=== PATIENT | female | born 1965 | race Caucasian/White ===

== ENCOUNTER → 2023-11-11 08:50 | Outpatient (AMB) | payer OTHER, SELFPAY ==
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
== END ==
LOC: HO.HOP 08:50
PROVIDERS: Visit Provider Counselor Mental Health
DX: F43.10 Post-traumatic stress disorder, unspecified (principal)
CPT/HCPCS: 90837

== ENCOUNTER → 2023-11-11 08:50 | Outpatient (BNVA) | payer OTHER, SELFPAY | PROVIDERS: Visit Provider Counselor Mental Health ==

== ENCOUNTER → 2023-11-18 12:18 | Outpatient (BNVA) | payer OTHER, SELFPAY | PROVIDERS: Visit Provider Counselor Mental Health ==

== ENCOUNTER → 2023-11-18 12:18 | Outpatient (AMB) | payer OTHER, SELFPAY ==
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
== END ==
LOC: HO.HOP 12:18
PROVIDERS: Visit Provider Counselor Mental Health
DX: F43.10 Post-traumatic stress disorder, unspecified (principal)
CPT/HCPCS: 90837

== ENCOUNTER → 2023-11-25 08:25 | Outpatient (BNVA) | payer OTHER, SELFPAY | PROVIDERS: Visit Provider Counselor Mental Health ==

== ENCOUNTER → 2023-11-25 08:25 | Outpatient (AMB) | payer OTHER, SELFPAY ==
--- NOTE | 2023-11-25 08:26 | MHC.WMTHER ---
Intake Intake Visit Reasons: VIDEO OP Therapy Behavioral Health Assessment Weight Management Therapy Therapy Notes Details Objective/Interventions: PT presents for a follow up visit via telehealth. Today we processed overall functioning, progress and ongoing needs. Reflected listening implemented and constructive feeback provided. CBT and TF-CBT tecniques used to cope with deregulation from Hx of trauma. Behavioral activation targeting morning productivity recommended. Reinforced the ongoing small behavioral changes and it's impact in overall routine and functioning. Subjective: PT reports she has been more reflected and grounded so she can identify what's going on and take a break to be present and get things done. States she is doing better but the past 2 days not sleeping well due to worries around pending projects for school. Asked for feedback around changes aarounf routine and time management. Assessment/Response: PT presents alert, oriented and mildly anxious but not dysregulated. Denies feeling depressed, describes feeling more aware of things . functioning is good, with minimal issues related to high stress. She was open and active in session. Very engaged and responded well to interventions and suggestions. Assessment & Plan Assessment & Plan (1) Post traumatic stress disorder (PTSD): Code(s): F43.10 - Post-traumatic stress disorder, unspecified Plan Continue meeting on a weekly basis. Homework: start structuring mornings to add time for school work, before work day starts. and try different approaches as we discussed. Next fatimah: 12/02/23 at 8am, via telehealth. Telehealth [facility]health [facility] Location of provider rendering services: other Location of patient: address on file Patient Identification confirmed using: Name, : Yes Telehealth method: video Patient verbally consented to treatment: Yes Patient verbally consented to billing insurance company: Yes Patient informed of any privacy concerns related to visit: No Minutes spent on Phone/Video with Pt.: 55 (Start time: 8:05 - End time: 9:00am) Coding Level of Care Code Established Pt Tele Psytx >53 mins ([id number]) Patient Type Established Diagnoses Post traumatic stress disorder (PTSD) F43.10 Time Spent (min) 55 Comment Start time: 8:05 - End time: 9:00am
== END ==
LOC: HO.HOP 08:25
PROVIDERS: Visit Provider Counselor Mental Health
DX: F43.10 Post-traumatic stress disorder, unspecified (principal)
CPT/HCPCS: 90837

== ENCOUNTER 2023-12-16 08:11 | Outpatient (AMB) | payer OTHER, SELFPAY ==
--- NOTE | 2023-12-16 08:00 | A.OFFWM_ITS ---
Intake Intake Visit Reasons: VIDEO OP Therapy Behavioral Health Assessment Weight Management Therapy Therapy Notes Details Subjective: PT reports she feels able to recognize what is real stress from the previous life daily stress/caos. Early Stress Sx: Nauseous Objective: PT presents for a follow up visit via Telehealth. Discussed functioning, triggers and progress. Used CPT for Sx management. Reflective listening with feedback used to reinforcement progress. Assessment/Response: * Mental status: WNL * Risk reported/identified: None Open, active engaged. Responded well to interventions. Assessment & Plan Assessment & Plan (1) Post traumatic stress disorder (PTSD): Code(s): F43.10 - Post-traumatic stress disorder, unspecified Plan Continue meeting on a weekly basis. Telehealth Telehealth Telehealth [facility] Location of provider rendering services: other Location of patient: address on file Patient Identification confirmed using: Name, : Yes Telehealth method: video Patient verbally consented to treatment: Yes Patient verbally consented to billing insurance company: Yes Patient informed of any privacy concerns related to visit: No Minutes spent on Phone/Video with Pt.: 60 Coding Level of Care Code Established Pt Tele Psytx >53 mins ([id number]) Patient Type Established Diagnoses Post traumatic stress disorder (PTSD) F43.10 Time Spent (min) 60
== END 2023-12-16 09:00 | disposition home or self-care (01) ==
LOC: HO.HOP 08:11
PROVIDERS: Visit Provider Counselor Mental Health
DX: F43.10 Post-traumatic stress disorder, unspecified (principal)
CPT/HCPCS: 90837

== ENCOUNTER → 2023-12-16 08:11 | Outpatient (BNVA) | payer OTHER, SELFPAY | PROVIDERS: Visit Provider Counselor Mental Health ==

== ENCOUNTER → 2023-12-30 08:09 | Outpatient (BNVA) | payer OTHER, SELFPAY | PROVIDERS: Visit Provider Counselor Mental Health ==

== ENCOUNTER → 2023-12-30 08:09 | Outpatient (AMB) | payer OTHER, SELFPAY ==
--- NOTE | 2023-12-30 08:00 | A.OFFWM_ITS ---
Intake Intake Visit Reasons: VIDEO OP Therapy Behavioral Health Assessment Weight Management Therapy Therapy Notes Details Subjective: PT reports she's doing well. Still have struggles with transitioning from work to home. It's been 8 months since his child , and feelings are not as overwhelming and she can sit with her emotions . Aware of that skipping meals is a Sx that triggers other anxiety response. She reports been working on small goals and is trying to prioritize psecific things as her days are never the same due to her job. Objective: PT presents for a follow up visit via Telehealth. She canceled last visit scheduled for 12/23/23. Cognitive processing therapy implemented for trauma. Assessment/Response: * Mental status: WNL * Risk reported/identified: None Active and engaged. PT is very aware of Sx and progress made, she still shows active trauma-related Sx which is normal due to nature of events. She continues responding well to this modality. Assessment & Plan Assessment & Plan (1) Post traumatic stress disorder (PTSD): Code(s): F43.10 - Post-traumatic stress disorder, unspecified Plan Continue meeting on a weekly basis. Advised to prioritize evening time, bedtime routine/habits for better sleep hygiene Telehealth Telehealth Telehealth Platform: [employer] Location of provider rendering services: other Location of patient: address on file Patient Identification confirmed using: Name, : Yes Telehealth method: video Patient verbally consented to treatment: Yes Patient verbally consented to billing insurance company: Yes Patient informed of any privacy concerns related to visit: No Minutes spent on Phone/Video with Pt.: 60 Coding Level of Care Code Established Pt Tele Psytx >53 mins ([id number]) Patient Type Established Diagnoses Post traumatic stress disorder (PTSD) F43.10 Time Spent (min) 60 Comment Start time: 8:00 - End time: 9:00am
== END ==
LOC: HO.HOP 08:09
PROVIDERS: Visit Provider Counselor Mental Health
DX: F43.10 Post-traumatic stress disorder, unspecified (principal)
CPT/HCPCS: 90837

== ENCOUNTER → 2024-01-06 08:08 | Outpatient (AMB) | payer OTHER, SELFPAY ==
--- NOTE | 2024-01-06 08:03 | MHC.WMTHER ---
Intake Intake Visit Reasons: VIDEO OP Therapy Behavioral Health Assessment Weight Management Therapy Therapy Notes Details Subjective: PT reports she has been doing better. Noticed some triggering events this week. Sleeping and functioning well in general. Objective: PT presents for a follow up visit via Telehealth. 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 Assessment/Response: Mental status: WNL. Risk reported/identified: None Pt was active and engaged. Responded well to interventions and modality. Plan: continue weekly sessions. Coping plan for after session, transition by doing part 1 of journal followed by mindfulness excercise. Then review her day and plan to fit 1-2 additional mindfulness activities for the day Assessment & Plan Assessment & Plan (1) Post traumatic stress disorder (PTSD): Code(s): F43.10 - Post-traumatic stress disorder, unspecified Plan Continue meeting on a weekly basis. Telehealth Telehealth Telehealth Platform: [facility] Location of provider rendering services: other Location of patient: address on file Patient Identification confirmed using: Name, : Yes Telehealth method: video Patient verbally consented to treatment: Yes Patient verbally consented to billing insurance company: Yes Patient informed of any privacy concerns related to visit: No Minutes spent on Phone/Video with Pt.: 60 Coding Level of Care Code Established Pt Tele Psytx >53 mins ([id number]) Patient Type Established Diagnoses Post traumatic stress disorder (PTSD) F43.10 Time Spent (min) 60
== END ==
LOC: HO.HOP 08:08
PROVIDERS: Visit Provider Counselor Mental Health
DX: F43.10 Post-traumatic stress disorder, unspecified (principal)
CPT/HCPCS: 90837

== ENCOUNTER → 2024-01-06 08:08 | Outpatient (BNVA) | payer OTHER, SELFPAY | PROVIDERS: Visit Provider Counselor Mental Health ==

== ENCOUNTER 2024-01-20 08:09 | Outpatient (AMB) | payer OTHER, SELFPAY ==
--- NOTE | 2024-01-20 08:05 | A.OFFWM_ITS ---
Intake Intake Visit Reasons: VIDEO OP Therapy Behavioral Health Assessment Weight Management Therapy Therapy Notes Details Subjective: Patient presents with mixed feelings surrounding social situations, expressing some discomfort or uncertainty in navigating these interactions. The patient mentions an ongoing effort to understand and address these feelings, seeking strategies to better manage social anxiety. Objective: The patient presents for a follow-up visit via Telehealth. Engaged and communicative throughout the session. Supportive listening was utilized to validate the patient's feelings and concerns. Functional analysis was conducted to explore potential triggers, responses, and maintenance factors related to social anxiety. The patient reflected on current coping methods and worked on reframing some mental responses to improve social interactions. Discussed alternative coping strategies to challenge unhelpful thought patterns and improve emotional regulation. Assessment/Response: * Mental status: Mild anxiety. The patient is alert, open, and active throughout the session. * Risk: No immediate risk identified; patient?s risk factors remain within normal limits. The patient appears motivated and engaged in understanding the underlying causes of her social anxiety. She reports that she has begun reading a recommended book, which has been helpful in understanding past behavioral patterns and cycles, particularly those related to her childhood. The patient responded positively to interventions, showing increased insight and willingness to try new coping strategies. Assessment & Plan Assessment & Plan (1) Post traumatic stress disorder (PTSD): Code(s): F43.10 - Post-traumatic stress disorder, unspecified (2) Moderate depressive episode: Code(s): F32.A - Depression, unspecified Plan -Continue using supportive listening and functional analysis to explore triggers and responses in social situations. -Focus on reinforcing new coping mechanisms and reframing unhelpful mental patterns. -Encourage continued reading of the book to deepen understanding and insight into past behavior patterns. Next appointment: 01/26/2025 at 8am, telehealth Telehealth Telehealth [facility]health [facility] Location of provider rendering services: other Location of patient: address on file Patient Identification confirmed using: Name, : Yes Telehealth method: video Patient verbally consented to treatment: Yes Patient verbally consented to billing insurance company: Yes Patient informed of any privacy concerns related to visit: Yes Minutes spent on Phone/Video with Pt.: 55 Coding Level of Care Code Established Pt Tele Psytx >53 mins ([id number]) Patient Type Established Diagnoses Post traumatic stress disorder (PTSD) F43.10 Moderate depressive episode F32.A Time Spent (min) 55
== END 2024-01-20 16:00 | disposition home or self-care (01) ==
LOC: HO.HOP 08:09
PROVIDERS: Visit Provider Counselor Mental Health
DX: F43.10 Post-traumatic stress disorder, unspecified (principal); F32.A Depression, unspecified
CPT/HCPCS: 90837

== ENCOUNTER → 2024-01-20 08:09 | Outpatient (BNVA) | payer OTHER, SELFPAY | PROVIDERS: Visit Provider Counselor Mental Health ==

== ENCOUNTER → 2024-01-27 08:09 | Outpatient (AMB) | payer OTHER, SELFPAY ==
--- NOTE | 2024-01-27 08:05 | A.OFFWM_ITS ---
Intake Intake Visit Reasons: VIDEO OP Therapy Behavioral Health Assessment Weight Management Therapy Therapy Notes Details Subjective: PT reports she's coming over a blip , a down avoiding things. Objective: Pt presents for a counseling f/up visit via Telehealth. Reflective listening, discussed functioning and processed overall mood, triggers and responses. Reflected on patterns and changes she has made, while worked in Sx management and cognitive restructuration. Used CBT and CPT interventions. Assessment/Response: * Mental status: WNL. Good functioning. * Risk reported/identified: None. PT was reflective and responded well to interventions. -Aware of her dysregulation responses an d causes/reasons for the blip (eusually a deadline and she has a block for it). She has been reframing the self-talk and is learning that Working harder has been her compensatory behavior for fears (core beliefs.) Assessment & Plan Assessment & Plan (1) Post traumatic stress disorder (PTSD): Code(s): F43.10 - Post-traumatic stress disorder, unspecified Plan Continue meeting on a weekly basis. Coding Level of Care Code Established Pt Tele Psytx >53 mins ([id number]) Patient Type Established Diagnoses Post traumatic stress disorder (PTSD) F43.10 Time Spent (min) 55
== END ==
LOC: HO.HOP 08:09
PROVIDERS: Visit Provider Counselor Mental Health
DX: F43.10 Post-traumatic stress disorder, unspecified (principal)
CPT/HCPCS: 90837

== ENCOUNTER → 2024-01-27 08:09 | Outpatient (BNVA) | payer OTHER, SELFPAY | PROVIDERS: Visit Provider Counselor Mental Health ==

== ENCOUNTER → 2024-02-24 08:00 | Outpatient (AMB) | payer OTHER, SELFPAY ==
--- NOTE | 2024-02-24 08:00 | A.OFFWM_ITS ---
Intake Intake Visit Reasons: VIDEO OP Therapy Behavioral Health Assessment Weight Management Therapy Therapy Notes Details Subjective: Patient reports having a very difficult time over the past three weeks, with a triggering event involving her son, which led to a depressive episode. Describes getting through the days but expresses significant distress. Ongoing Symptoms besides depressed state include nausea, memory issues, difficulty completing work, feelings of sadness, and struggles with morning functioning. Positive aspects include sleeping well and not procrastinating on schoolwork. Objective: Patient presents for a follow-up visit via Telehealth. Patient canceled last week's appointment due to emotional distress. Utilized Cognitive Behavioral Therapy (CBT) and Cognitive Processing Therapy (CPT) combined with a person-centered approach to validate and normalize the patient?s emotions. Focused on identifying triggers, responses, and developing a relapse prevention plan. Explored the patient?s deepest fears and mental responses to current challenges. Discussed ongoing grief, and strategized for coping with the upcoming holidays, aiming to balance honoring her feelings while enjoying family and blessings. Provided constructive feedback and emotional support throughout the session. Assessment/Response: * Mental status: Moderate depression with functioning difficulties. The patient is oriented to person, place, and time, and remains alert. * Risk: No immediate risk identified; risk factors remain within normal limits. Patient responded positively to the interventions, demonstrating engagement in the process and openness to exploring underlying issues. Plan: due to Sx we will follow up in 1 week. Next fatimah: 03/02 @8am, Telehealth. Assessment & Plan Assessment & Plan (1) Post traumatic stress disorder (PTSD): Code(s): F43.10 - Post-traumatic stress disorder, unspecified (2) Moderate depressive episode: Code(s): F32.A - Depression, unspecified Plan * Due to the ongoing symptoms, follow-up is scheduled in one week to monitor progress and continue treatment. * Focus on developing further coping strategies for managing grief and holiday stress. * Next appointment: 03/02 at 8:00 AM via Telehealth. [employer] Telehealth Telehealth Platform: [facility] Location of provider rendering services: other Location of patient: address on file Patient Identification confirmed using: Name, : Yes Telehealth method: video Patient verbally consented to treatment: Yes Patient verbally consented to billing insurance company: Yes Patient informed of any privacy concerns related to visit: Yes Minutes spent on Phone/Video with Pt.: 60 Coding Level of Care Code Established Pt Tele Psytx >53 mins ([id number]) Patient Type Established Diagnoses Post traumatic stress disorder (PTSD) F43.10 Moderate depressive episode F32.A Time Spent (min) 60
== END ==
LOC: HO.HOP 08:18
PROVIDERS: Visit Provider Counselor Mental Health
DX: F43.10 Post-traumatic stress disorder, unspecified (principal); F32.A Depression, unspecified
CPT/HCPCS: 90837

== ENCOUNTER 2024-03-02 08:12 | Outpatient (AMB) | payer OTHER, SELFPAY ==
--- NOTE | 2024-03-02 08:05 | A.OFFWM_ITS ---
Intake Intake Visit Reasons: VIDEO OP Therapy Behavioral Health Assessment Weight Management Therapy Therapy Notes Details Subjective: PT reports feeling better in general but there is a tense environment due to recent issues with her son who loves with her. Feeling triggered by her son's behaviors as reminds her past negative experiences with child (Alonso). So she feels little bit stuck . Hard to know what to do around the holidays while going trough a complicated grief. Objective: PT presents for a f/up visit via Telehealth. Implemented CPT therapy for trauma and grief. Explored Spiritual practices for grief and manage Holidays. Reflective listening used and constructive feedback for Sx management provided. Assessment/Response: * Mental status: Sad, anxious, mild-mod functioning issues. * Risk reported/identified: None PT was open and reflective, she responded well to interventions. Assessment & Plan Assessment & Plan (1) Post traumatic stress disorder (PTSD): Code(s): F43.10 - Post-traumatic stress disorder, unspecified (2) Moderate depressive episode: Code(s): F32.A - Depression, unspecified Plan F//up in 2 weeks as she's unavailable next week. NExt fatimah: 03/16/24 at 8am, Telehealth. Telehealth Telehealth Telehealth Platform: [facility] Location of provider rendering services: other Location of patient: address on file Patient Identification confirmed using: Name, : Yes Telehealth method: video Patient verbally consented to treatment: Yes Patient verbally consented to billing insurance company: Yes Patient informed of any privacy concerns related to visit: Yes Minutes spent on Phone/Video with Pt.: 60 Coding Level of Care Code Established Pt Tele Psytx >53 mins ([id number]) Patient Type Established Diagnoses Post traumatic stress disorder (PTSD) F43.10 Moderate depressive episode F32.A Time Spent (min) 60
== END 2024-03-02 11:30 | disposition home or self-care (01) ==
LOC: HO.HOP 08:12
PROVIDERS: Visit Provider Counselor Mental Health
DX: F43.10 Post-traumatic stress disorder, unspecified (principal); F32.A Depression, unspecified
CPT/HCPCS: 90837

== ENCOUNTER 2024-03-30 08:14 | Outpatient (AMB) | payer OTHER, SELFPAY ==
--- NOTE | 2024-03-30 08:00 | A.OFFWM_ITS ---
Intake Intake Visit Reasons: VIDEO OP Therapy Behavioral Health Assessment Weight Management Therapy Therapy Notes Details Subjective: The patient presents for a Telehealth visit. She reports experiencing high stress due to a recent work-related event, which has now added concerns for her own safety. Despite this, she notes that she is managing things better personally this time around. The patient mentions that the holidays were more challenging than anticipated, but she was able to manage strong emotions and be present with her family. Objective: F/up visit via Telehealth. . Discussed current stressors, including work-related concerns and safety issues. Processed the emotional impact of the holidays and how the patient managed her feelings. Incorporated Cognitive Behavioral Therapy (CBT) to explore and reframe negative thought patterns related to stress and safety concerns. Used Cognitive Processing Therapy (CPT) techniques to help the patient challenge and address maladaptive beliefs related to her personal safety and work environment. Applied mindfulness exercises to help the patient remain grounded in the present moment and reduce overwhelming feelings. Assessment/Response: * Mental Status: Elevated stress, but improved personal coping. Mild emotional strain during the holidays. * Risk: No immediate risks identified. The patient appeared engaged and actively participating in the session. She is actively working through her stressors and demonstrating positive coping strategies. She responded well to the CBT and CPT interventions, and mindfulness techniques helped her stay more grounded. Assessment & Plan Assessment & Plan (1) Post traumatic stress disorder (PTSD): Code(s): F43.10 - Post-traumatic stress disorder, unspecified (2) Moderate depressive episode: Code(s): F32.A - Depression, unspecified Plan * Reinforce mindfulness practices to help manage stress in the present moment. * Monitor progress in managing stress and emotional regulation and adjust interventions as needed. F/up in 2 weeks. Next fatimah: 04/13/2024 at 8am, via Telehealth. Telehealth Telehealth Telehealth Platform: [facility] Location of provider rendering services: other Location of patient: address on file Patient Identification confirmed using: Name, : Yes Telehealth method: video Patient verbally consented to treatment: Yes Patient verbally consented to billing insurance company: Yes Patient informed of any privacy concerns related to visit: Yes Minutes spent on Phone/Video with Pt.: 60 Coding Level of Care Code Established Pt Tele Psytx >53 mins ([id number]) Patient Type Established Diagnoses Post traumatic stress disorder (PTSD) F43.10 Moderate depressive episode F32.A Time Spent (min) 60
== END 2024-03-30 11:13 | disposition home or self-care (01) ==
LOC: HO.HOP 08:14
PROVIDERS: Visit Provider Counselor Mental Health
DX: F43.10 Post-traumatic stress disorder, unspecified (principal); F32.A Depression, unspecified
CPT/HCPCS: 90837

== ENCOUNTER 2024-04-13 08:08 | Outpatient (AMB) | payer OTHER, SELFPAY ==
--- NOTE | 2024-04-13 08:00 | A.OFFWM_ITS ---
Intake Intake Visit Reasons: VIDEO OP Therapy Behavioral Health Assessment Weight Management Therapy Therapy Notes Details Subjective: The patient reports feeling better today and is relieved that the holidays are over. She shares that she has been managing well with the socio-political situation, understanding her position and the need to stay informed. 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 These drives bring up a variety of memories, which have been difficult for her to process. Objective: The patient presents for a follow-up visit via Telehealth. * Discussed the patient's current functioning and the triggers related to driving the old route. * Processed the emotional impact of these triggers and explored the associated memories. * Developed a coping plan, focusing on grounding techniques to manage intrusive thoughts and memories. * Reviewed self-care strategies, including mindfulness exercises and relaxation techniques, to help manage stress when these triggers arise. Assessment/Response: * Mental Status: The patient appears stable with some emotional distress when triggered by memories related to driving. She is otherwise functioning well and managing her emotional reactions more effectively. * Risk: No immediate risks identified. The patient was engaged in the session and actively participated in processing the triggers. The coping strategies discussed seemed appropriate, and the patient responded well to the interventions. Assessment & Plan Assessment & Plan (1) Post traumatic stress disorder (PTSD): Code(s): F43.10 - Post-traumatic stress disorder, unspecified (2) Moderate depressive episode: Code(s): F32.A - Depression, unspecified Plan Continue using mindfulness and grounding techniques to manage triggers related to past memories. Encourage regular use of self-care strategies, such as relaxation exercises, to reduce emotional distress. F/up in 2 weeks. Telehealth Telehealth Telehealth [facility] Location of provider rendering services: other Location of patient: address on file Patient Identification confirmed using: Name, : Yes Telehealth method: video Patient verbally consented to treatment: Yes Patient verbally consented to billing insurance company: Yes Patient informed of any privacy concerns related to visit: Yes Minutes spent on Phone/Video with Pt.: 60 Coding Level of Care Code Established Pt Tele Psytx >53 mins ([id number]) Patient Type Established Diagnoses Post traumatic stress disorder (PTSD) F43.10 Moderate depressive episode F32.A Time Spent (min) 60
--- OUTSIDE RECORDS SUMMARY | 2024-04-13 10:59 | XMS_ITS | Clinical Summary ---
Author Organization [facility] Address [address] [place] [address] Care Team Providers Care Fashion Consultant Selling Name Role Phone Pcp, No Primary Care Provider Unavailabl e Allergies No known active allergies Medications No known medications Active Problems Problem Noted Date Diagnosed Date Abnormal ultrasound of breast 10/06/2016 Inconclusive mammogram 10/06/2016 Family History Medical History Relation Name Comments Lung cancer Paternal Grandfather Relation Name Status Comments Paternal Grandfather Social History Tobacco Use Types Packs/Day Years Used Date Smoking Tobacco: Never Smokeless Tobacco: Never Alcohol Use Standard Drinks/Week Comments Yes 0 (1 standard drink = 0.6 oz pur e alcohol) Sex and Gender Information Value Date Recorded Sex Assigned at Not on file Gender Identity Not on file Sexual Orientation Not on file Last Filed Vital Signs Vital Sign Reading Time Taken Comments Blood Pressure 112/70 04/27/2017 9:48 AM EST Pulse 61 04/27/2017 9:48 AM EST Temperature - - Respiratory Rate - - Oxygen Saturation 98% 04/27/2017 9:48 AM EST Inhaled Oxygen Concentration - - Weight 70.3 kg (155 lb) 04/27/2017 9:48 AM EST Height 167.6 cm (5' 6 ) 04/27/2017 9:48 AM EST Body Mass Index 25.02 04/27/2017 9:48 AM EST Plan of Treatment Health Maintenance Due Date Last Done Comments Hepatitis C Virus Screening 1966 HIV Screening 11/01/1979 DTaP/Tdap/Td Vaccines (1 - Tdap) 1985 Hepatitis B Vaccines (1 of 3 - 19+ 3-dose series) 1985 Pap Smear (Ages 21-65) 11/01/1987 Colonoscopy 11/01/2011 Pneumococcal Vaccines 50+ (1 of 1 - PCV) 2016 Zoster (Shingles) Vaccine (1 of 2) 2016 Mammogram 11/24/2019 11/23/2017, 08/19/2016, 08/19/2016 Influenza Vaccine 10/14/2023 COVID-19 Vaccine (1 - 2023-2 5 season) 2023 Pneumococcal Vaccine: Pediatric (0-5 Years) and At-Risk Patients (6 to 49 Years) Aged Out No longer eligible b ased on patient's age to complete this topic Procedures Procedure Name Priority Date/Time Associated Diagnosis Comments MM MAMMOGRAM SCREENING-BILATERAL Routine 11/23/2017 4:47 PM EDT from Last 3 Months or Most Recently Relevant to Health Maintenance Results * MM Mammogram screening-Bilateral (11/23/2017 4:47 PM EDT) Anatomical Region Laterality Modality Breast Bilateral Mammography 11/23/2017 1:45 PM EDT 11/23/2017 1:45 PM EDT Impressions 11/23/2017 4:47 PM EDT Biopsy clip in the left breast is benign. Routine follow-up mammogram in 1 year is recommended. The patient will receive a lay summary of the results of this breast imaging exam. Lay summaries for mammography examinations will also identify the patients personal breast tissue composition as required by state law. BIRADS Category 2: Benign Thank you for referring your patient to us, Krzysztof Alves MD [phone] (Electronically Signed - 11/23/2017 16:47) Copy: SHANI NUNEZ MD [address] [place] [address] [facility] [address] [facility] [address] [place], [place] [address] PATIENT , ?? Narrative 11/23/2017 4:47 PM EDT HISTORY: Patient is 52 years old and is seen for screening. The patient has a history of left ultrasound core biopsy in September,. FILMS COMPARED: The present examination has been compared to prior imaging studies dated 10/12/2016, 08/19/2016 and 07/01/2015. MAMMOGRAM FINDINGS: The following digital mammographic views were obtained: . The breasts are heterogeneously dense, which may obscure small masses. (ACR BIRADS density Category c) * There is a biopsy clip seen in the left breast at 12 oclock. No suspicious masses, calcifications or other abnormalities are seen in either breast. Computer-aided detection was utilized by the radiologist in the interpretation of this examination. Procedure Note Krzysztof Alves MD - 11/23/2017 HISTORY: Patient is 52 years old and is seen for screening. The patient has a history of left ultrasound core biopsy in September,. FILMS COMPARED: The present examination has been compared to prior imaging studies dated10/12/2016, 08/19/2016 and 07/01/2015. MAMMOGRAM FINDINGS: The following digital mammographic views were obtained: . The breasts are heterogeneously dense, which may obscure small masses.(ACR BIRADS density Category c) * There is a biopsy clip seen in the left breast at 12 oclock. No suspicious masses, calcifications or other abnormalities are seen ineither breast. Computer-aided detection was utilized by the radiologist in theinterpretation of this examination. IMPRESSION: Biopsy clip in the left breast is benign. Routine follow-up mammogram in 1 year is recommended. The patient will receive a lay summary of the results of this breastimaging exam. Lay summaries for mammography examinations will alsoidentify the patients personal breast tissue composition as required [facility]. BIRADS Category 2: Benign Thank you for referring your patient to us, Krzysztof Alves MD [phone] (Electronically Signed - 11/23/2017 16:47) Copy: SHANI NUNEZ MD [address], [place] [id number] [facility] [address] [facility] [address] [place], [place] [address] PATIENT , Dejah Moura MD IMG MAMMOGRAPHY ORDAlicia CRAVEN from Last 3 Months or Most Recently Relevant to Health Maintenance Care Teams Fashion Consultant Selling Relationship Specialty Start Date End Date Pcp, No PCP - General General Medicine 09/07/16
== END 2024-04-13 09:39 | disposition home or self-care (01) ==
LOC: HO.HOP 08:08
PROVIDERS: Visit Provider Counselor Mental Health
DX: F43.10 Post-traumatic stress disorder, unspecified (principal); F32.A Depression, unspecified
CPT/HCPCS: 90837

== ENCOUNTER → 2024-04-13 08:08 | Outpatient (BNVA) | payer OTHER, SELFPAY | PROVIDERS: Visit Provider Counselor Mental Health ==

== ENCOUNTER 2024-05-25 08:00 | Outpatient (AMB) | payer OTHER, SELFPAY ==
--- NOTE | 2024-05-25 08:00 | A.OFFWM_ITS ---
Intake Intake Visit Reasons: VIDEO OP Therapy Behavioral Health Assessment Weight Management Therapy Therapy Notes Details Subjective: The patient reports having had a challenging March, particularly due to the one- year anniversary of her child?s passing. She describes the situation with her son as still being tense. During this time, she missed work and believes she experienced a depressive episode, which lasted for approximately 2-3 weeks. The patient shared that she has learned she tends not to release her emotions?she does not cry in front of others or share her feelings openly. Objective: The patient presented for a follow-up session via Telehealth. . Emotional Processing & Functioning implemented as The patient expressed difficulty in emotional expression and discussed her unresolved grief. Used TF-CBT based interventions. Challenged guilt and self-blame around grief, encouraging reframing of thoughts about emotional expression and Suggested journaling and small activities to promote emotional expression. Reflected on narrative of grief to process emotions. Practiced grounding techniques to manage overwhelming emotions. Assessment/Response: * Mental Status: The patient appeared well-oriented, with a somewhat flat affect, though she was engaged throughout the session. Her thought process was coherent, and she demonstrated insight into her grief and emotional struggles. * Risk Reported/Identified: No immediate risks were identified during the session. The patient denied current thoughts of self-harm or suicidal ideation. However, her grief remains unresolved, and continued monitoring is necessary. Assessment & Plan Assessment & Plan (1) Post traumatic stress disorder (PTSD): Code(s): F43.10 - Post-traumatic stress disorder, unspecified (2) Moderate depressive episode: Code(s): F32.A - Depression, unspecified Plan Continue bi-weekly therapy sessions, focusing on grief processing and emotional expression. Next appointment: 06/08/24 at 8:00 AM, via Telehealth. Telehealth Telehealth Telehealth Platform: [facility] Location of provider rendering services: other Location of patient: address on file Patient Identification confirmed using: Name, : Yes Telehealth method: video Patient verbally consented to treatment: Yes Patient verbally consented to billing insurance company: Yes Patient informed of any privacy concerns related to visit: Yes Minutes spent on Phone/Video with Pt.: 60 Coding Level of Care Code Established Pt Tele Psytx >53 mins ([id number]) Patient Type Established Diagnoses Post traumatic stress disorder (PTSD) F43.10 Moderate depressive episode F32.A Time Spent (min) 60
--- OUTSIDE RECORDS SUMMARY | 2024-05-25 08:42 | XMS_ITS | Clinical Summary ---
Author Organization [facility] Address [address] [place] [address] Care Team Providers Care Skill Labor Name Role Phone Pcp, No Primary Care [...] your patient to us, Krzysztof Alves MD [phone] (Electronically Signed - 11/23/2017 16:47) Copy: SHANI NUNEZ MD [address] [place] [address] [facility] [address] [facility] [address] [place], [place] [address] PATIENT , ?? Narrative 11/23/2017 4:47 PM [...] patients personal breast tissue composition as required [facility] law. BIRADS Category 2: Benign Thank you for referring your patient to us, Krzysztof Alves MD [phone] (Electronically Signed - 11/23/2017 16:47) Copy: SHANI NUNEZ MD [address] [place], [place] [id number] [facility] [address] [facility] [address] [place], [place] [address] PATIENT , Dejah Moura MD IMG MAMMOGRAPHY ORDAlicia CRAVEN from Last 3 Months or Most Recently Relevant to Health Maintenance Care Teams Skill Labor Relationship Specialty Start Date End Date Pcp, No PCP - General General Medicine 09/07/16
== END 2024-05-25 09:58 | disposition home or self-care (01) ==
LOC: HO.HOP 08:19
PROVIDERS: Visit Provider Counselor Mental Health
DX: F43.10 Post-traumatic stress disorder, unspecified (principal); F32.A Depression, unspecified
CPT/HCPCS: 90837

== ENCOUNTER 2024-06-08 08:13 | Outpatient (AMB) | payer OTHER, SELFPAY ==
--- NOTE | 2024-06-08 08:00 | MHC.WMTHER ---
Intake Intake Visit Reasons: VIDEO OP Therapy Behavioral Health Assessment Weight Management Therapy Therapy Notes Details Subjective: The patient reports feeling better overall and managing symptoms more effectively. She feels more present in her daily life. However, she continues to experience deep emotional struggles, feeling that there is something she cannot let go of. She has difficulty feeling randy, as exemplified by her recent experience at her oldest daughter?s baby shower, where she couldn?t fully enjoy the celebration. Objective: The patient presented for a follow-up visit via Telehealth. . Implemented TF-CBT and CPT in today's session. Reviewed the cycle of grief and explored multiple losses, addressing the core beliefs underlying her grief, such as difficulty letting go and the belief that feeling randy equates to forgetting her children. Worked on identifying and challenging negative self-talk, including thoughts like ?Why me?? and ?What kind of mother am I?? Focused on improving self-worth and self-compassion. Reflected on the depressive episode from April and began processing the emotions triggered during that time. Started creating a trauma narrative, specifically through the activity of writing a letter to her future self, addressing feelings related to the April episode. Assessment/Response: Mental status: Sensitive and sad. Some mild concentration issues but functioning well. Risk reported/identified: None Assessment & Plan Assessment & Plan (1) Post traumatic stress disorder (PTSD): Code(s): F43.10 - Post-traumatic stress disorder, unspecified (2) Moderate depressive episode: Code(s): F32.A - Depression, unspecified Plan - Continue to process grief and challenge negative thought patterns in upcoming sessions. - Support the patient in developing healthier self-worth and emotional regulation strategies. - F/up in 2 weeks. Next fatimah: 06/22/24 at 8am, Video. Telehealth Telehealth Telehealth Platform: [facility] Location of provider rendering services: other Location of patient: address on file Patient Identification confirmed using: Name, : Yes Telehealth method: video Patient verbally consented to treatment: Yes Patient verbally consented to billing insurance company: Yes Patient informed of any privacy concerns related to visit: Yes Minutes spent on Phone/Video with Pt.: 60 Coding Level of Care Code Established Pt Tele Psytx >53 mins ([id number]) Patient Type Established Diagnoses Post traumatic stress disorder (PTSD) F43.10 Moderate depressive episode F32.A Time Spent (min) 60
== END 2024-06-08 08:59 | disposition home or self-care (01) ==
LOC: HO.HOP 08:13
PROVIDERS: Visit Provider Counselor Mental Health
DX: F43.10 Post-traumatic stress disorder, unspecified (principal); F32.A Depression, unspecified
CPT/HCPCS: 90837

== ENCOUNTER 2024-06-22 08:19 | Outpatient (AMB) | payer OTHER, SELFPAY ==
--- NOTE | 2024-06-22 08:05 | MHC.WMTHER ---
Intake Intake Visit Reasons: VIDEO OP Therapy Behavioral Health Assessment Weight Management Therapy Therapy Notes Details Subjective: The patient reports experiencing feelings of guilt related to her recent loss and the multiple roles she occupies, including being a mother, leader, and grandmother. She describes feeling sad and engaging in negative self-talk. Objective: The patient attended a follow-up visit via Telehealth. We discussed her current functioning, daily routine, and the challenges she faces. Cognitive Processing Therapy (CPT) and reflective listening techniques were employed to address her feelings of guilt and to reframe her negative self-talk. Mindfulness exercises were reviewed as strategies to alleviate stress and manage heavy emotions. Additionally, we explored childhood experiences that may be contributing to her ongoing challenges, with a focus on symptom management. Assessment/Response: Mental status: The patient appears sad and exhibits mild depressive symptoms, with active negative self-talk. Oriented x3, alert, engaged in session. Risk reported/identified: None Assessment & Plan Assessment & Plan (1) Post traumatic stress disorder (PTSD): Code(s): F43.10 - Post-traumatic stress disorder, unspecified (2) Moderate depressive episode: Code(s): F32.A - Depression, unspecified Plan Continue to address and process grief in upcoming sessions, focusing on challenging and reframing negative thought patterns. Provide support in developing healthier self-worth and emotional regulation strategies. The next follow-up appointment will be in three weeks, as the patient will be unavailable in two weeks. Next appointment: 07/13/2024- 8:00 AM via Telehealth. Telehealth Telehealth Telehealth Platform: [facility] Location of provider rendering services: other Location of patient: address on file Patient Identification confirmed using: Name, : Yes Telehealth method: video Patient verbally consented to treatment: Yes Patient verbally consented to billing insurance company: Yes Patient informed of any privacy concerns related to visit: Yes Minutes spent on Phone/Video with Pt.: 55 Coding Level of Care Code Established Pt Tele Psytx >53 mins (82494) Patient Type Established Diagnoses Post traumatic stress disorder (PTSD) F43.10 Moderate depressive episode F32.A Time Spent (min) 55
--- OUTSIDE RECORDS SUMMARY | 2024-06-22 08:28 | XMS_ITS | Clinical Summary ---
Author Organization [facility] Address [address] [place] [address] Care Team Providers Care Dock Attendant Name Role Phone Pcp, No Primary Care [...] your patient to us, Krzysztof Alves MD [phone] (Electronically Signed - 11/23/2017 16:47) Copy: SHANI NUNEZ MD [address] [place] [address] SOBEIDA ROBISON [facility] [address] [facility] [address] [place], [place] [id number] PATIENT , ?? Narrative 11/23/2017 4:47 PM [...] patients personal breast tissue composition as [facility]. BIRADS Category 2: Benign Thank you for referring your patient to us, Krzysztof Alves MD [phone] (Electronically Signed - 11/23/2017 16:47) Copy: SHANI NUNEZ MD [address] [place], [place] [id number] SOBEIDA ROBISON [facility] 139 [facility] [address] [place], [place] [address] PATIENT , Dejah Moura MD IMG MAMMOGRAPHY ORDAlicia CRAVEN from Last 3 Months or Most Recently Relevant to Health Maintenance Care Teams Dock Attendant Relationship Specialty Start Date End Date Pcp, No PCP - General General Medicine 09/07/16
== END 2024-06-22 09:06 | disposition home or self-care (01) ==
LOC: HO.HOP 08:19
PROVIDERS: Visit Provider Counselor Mental Health
DX: F43.10 Post-traumatic stress disorder, unspecified (principal); F32.A Depression, unspecified
CPT/HCPCS: 90837

== ENCOUNTER → 2024-06-22 08:19 | Outpatient (BNVA) | payer OTHER, SELFPAY | PROVIDERS: Visit Provider Counselor Mental Health ==

== ENCOUNTER 2024-07-21 08:06 | Outpatient (AMB) | payer OTHER, SELFPAY ==
--- NOTE | 2024-07-21 08:07 | A.OFFWM_ITS ---
Intake Intake Visit Reasons: VIDEO OP Therapy Behavioral Health Assessment Weight Management Therapy Therapy Notes Details Subjective: The patient reports that she has been doing well overall but feels very busy. She expresses frustration over not having enough time to consistently practice meditation each night, which she believes would help her sleep better and feel more rested. Objective: Discussed functioning, progress, challenges and nedds. In today?s Telehealth follow-up, we used CBT and CPT as main modalities for Sx amnagement. In addition, the patient was guided to establish a consistent ?quiet time? routine as a transitional strategy to help manage stress and improve sleep and we explored the differences between introversion and extroversion, emphasizing the importance of engaging in activities that recharge her energy. The patient was encouraged to identify and incorporate personally meaningful, restorative activities into her daily schedule to support emotional regulation and overall well-being. Assessment/Response: * Mental status: Good functioning in general . * Risk reported/identified:None. Assessment & Plan Assessment & Plan (1) Post traumatic stress disorder (PTSD): Code(s): F43.10 - Post-traumatic stress disorder, unspecified (2) Moderate depressive episode: Code(s): F32.A - Depression, unspecified Plan Continue therapy on a bi-weekly basis. Next fatimah: 08/04/2024 at 8am, Video Telehealth Telehealth Telehealth Platform: [employer] Location of provider rendering services: other (Home office. [place], [place]) Location of patient: address on file Patient Identification confirmed using: Name, : Yes Patient verbally consented to treatment: Yes Patient verbally consented to billing insurance company: Yes Patient informed of any privacy concerns related to visit: Yes Minutes spent on Phone/Video with Pt.: 53 Coding Level of Care Code Established Pt Tele Psytx >53 mins (10444) Patient Type Established Diagnoses Post traumatic stress disorder (PTSD) F43.10 Moderate depressive episode F32.A Time Spent (min) 53
--- OUTSIDE RECORDS SUMMARY | 2024-07-21 08:08 | XMS_ITS | Clinical Summary ---
Author Organization [facility] Address [address] [place] [address] Care Team Providers Care Answering Service Operator Name Role Phone Pcp, No Primary Care [...] drink = 0.6 oz pur e alcohol) Comments Unknown Sex and Gender Information Value Date Recorded Sex Assigned at Not on file Legal Sex Female 4:39 PM EDT Gender Identity Not on file Sexual Orientation [...] (1 of 2) 2016 Mammogram 11/24/2019 11/23/2017, 09/2016, 08/19/2016 COVID-19 Vaccine (1 - season) 2023 Influenza Vaccine 10/13/2024 Procedures Procedure Name Priority Date/Time Associated Diagnosis [...] your patient to us, Krzysztof Alves MD [id number] (Electronically Signed - 11/23/2017 16:47) Copy: SHANI NUNEZ MD [address] [place] [address] SOBEIDA ROBISON [address] [place] [address] PATIENT , ?? Narrative 11/23/2017 4:47 PM [...] patients personal breast tissue composition as required bystate law. BIRADS Category 2: Benign Thank you for referring your patient to us, Krzysztof Alves MD [phone] (Electronically Signed - 11/23/2017 16:47) Copy: SHANI NUNEZ MD [address] [place], [place] [phone] SOBEIDA ROBISON [facility] 139 [facility] [address] [place], [place] [id number] PATIENT , us Dejah Moura MD IMG MAMMOGRAPHY ORDERABLES Final Result from Last 3 Months or Most Recently Relevant to Health Maintenance Insurance [employer] [place] OUT OF STATE - O Care Teams Answering Service Operator Relationship Specialty Start Date End Date Pcp, No PCP - General General Medicine 09/07/16
== END 2024-07-21 09:24 | disposition home or self-care (01) ==
LOC: HO.HOP 08:06
PROVIDERS: Visit Provider Counselor Mental Health
DX: F43.10 Post-traumatic stress disorder, unspecified (principal); F32.A Depression, unspecified
CPT/HCPCS: 90837

== ENCOUNTER → 2024-07-21 08:06 | Outpatient (BNVA) | payer OTHER, SELFPAY | PROVIDERS: Visit Provider Counselor Mental Health ==

== ENCOUNTER 2024-08-04 08:10 | Outpatient (AMB) | payer OTHER, SELFPAY ==
--- NOTE | 2024-08-04 08:05 | A.OFFWM_ITS ---
Intake Intake Visit Reasons: VIDEO OP Therapy Medication List - Last Reconciled 08/04/24 by Adilene Edmonds [facility] sertraline 100 mg PO DAILY Behavioral Health Assessment Weight Management Therapy Therapy Notes Details Subjective: Patient reports that her daughter recently gave to a baby boy, and she has been actively supporting them this past week. Despite this positive event, she describes feeling emotionally numb and having ?trouble allowing [herself] to feel,? often entering a shutdown state that she associates with the onset of depressive episodes. She expresses uncertainty about how she ?should? feel and notes operating in ?cruise control? or ?auto-aircraft pilot mode.? She reflects on a shift in her emotional expression over time, stating, ?I?m pragmatic now?I was an emotional child before.? Current medication: Zoloft 100 mg daily. Objective: Patient presented for a behavioral health follow-up via Telehealth. -CBT and ACT-based interventions were us ed to help the patient identify, label, and increase tolerance of emotional responses, especially around positive experiences. Emotional numbing was discussed as a protective pattern, and patient was encouraged to accept and explore mixed emotions without judgment. A brief values clarification exercise supported reflection on her shift from emotional to pragmatic coping and helped reconnect her with authentic emotional expression. -Behavioral activation strategies were d iscussed, including a structured chart identifying: (1) tasks she must do, (2) activities she enjoys, and (3) things she wishes to do more. This helped the patient examine her current routine, identify sources of fulfillment, and highlight areas of neglect. -The ?Wheel of Life? activity was also u tilized to assess satisfaction across lugo life domains, supporting greater self-awareness and potential goal development. Emotional transitions and coping skills were discussed in relation to meaningful life changes. Assessment/Response: * Mental status: Mood mildly depressed; insight and engagement present. * Risk reported/identified: None Patient was reflective, engaged, and receptive to therapeutic interventions throughout the session. Assessment & Plan Assessment & Plan (1) Post traumatic stress disorder (PTSD): Code(s): F43.10 - Post-traumatic stress disorder, unspecified (2) Moderate depressive episode: Code(s): F32.A - Depression, unspecified Plan Continue therapy on a bi-weekly basis. Next fatimah: 08/17/2024 at 8am, Video Telehealth Telehealth Telehealth Platform: [employer] Location of provider rendering services: other (Home office. [place], [place]) Location of patient: address on file Patient Identification confirmed using: Name, : Yes Telehealth method: video Patient verbally consented to treatment: Yes Patient verbally consented to billing insurance company: Yes Patient informed of any privacy concerns related to visit: Yes Minutes spent on Phone/Video with Pt.: 60 Coding Level of Care Code Established Pt Tele Psytx >53 mins (13694) Patient Type Established Diagnoses Post traumatic stress disorder (PTSD) F43.10 Moderate depressive episode F32.A Time Spent (min) 60 Current Meds Current Medications Home Medications sertraline 100 mg tablet 100 mg PO DAILY 08/04/24 [History Confirmed 08/04/24]
== END 2024-08-04 09:06 | disposition home or self-care (01) ==
LOC: HO.HOP 08:10
PROVIDERS: Visit Provider Counselor Mental Health
DX: F43.10 Post-traumatic stress disorder, unspecified (principal); F32.A Depression, unspecified
CPT/HCPCS: 90837

== ENCOUNTER 2024-08-17 08:12 | Outpatient (AMB) | payer OTHER, SELFPAY ==
--- NOTE | 2024-08-17 08:00 | MHC.WMTHER ---
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 She connects this pattern to a long-standing drive to stay busy, overachieve, and constantly pursue the next goal?behaviors she identifies as a form of compensation for being a difficult and criticized child. Additionally, the patient reports feeling significantly stressed about a class she is currently taking, noting that the fast pace has become a source of overwhelm and anxiety. Objective: Patient presented for a follow-up session via Telehealth. -The session focused on assessing current functioning, reflecting on insights gained since the last appointment, and addressing new stressors?particularly academic stress related to a fast-paced course. -Therapeutic interventions included problem-solving and strength-based techniques to support adaptive coping. The therapist guided the patient in exploring cognitive distortions related to perfectionism and unrealistic expectations, such as ?setting the bar too high? and struggling to define when something is ?enough.? -Strategies for time management and task transitions were introduced, helping the patient create structure throughout her day and reduce the mental strain of switching between high-demand activities. Daily planning techniques were explored to improve pacing and decrease overwhelm. -The importance of utilizing workplace supports was discussed, and the patient was encouraged to identify available resources and practice assertive communication when seeking help. -Cognitive restructuring and positive self-talk techniques were practiced, including the use of daily affirmations to counter self-criticism and reinforce self-compassion. The therapist reinforced the value of balancing productivity with emotional presence and supported the patient in identifying small moments to slow down and reconnect with her emotional state. Assessment/Response: Mental status:Stressed but engaged; affect congruent; insight present. Risk reported/identified: None Patient remained engaged throughout the session and was open to exploring deeper patterns of behavior and emotion. She demonstrated growing insight into her coping styles and expressed motivation to continue building healthier internal responses. Assessment & Plan Assessment & Plan (1) Post traumatic stress disorder (PTSD): Code(s): F43.10 - Post-traumatic stress disorder, unspecified (2) Moderate depressive episode: Code(s): F32.A - Depression, unspecified Plan F/up in 3 weeks. Next fatimah: 09/07/2024 at 10am Video Telehealth Telehealth Telehealth Platform: [employer] Location of provider rendering services: other (Home office. [place], [place]) Location of patient: address on file Patient Identification confirmed using: Name, : Yes Telehealth method: video Patient verbally consented to treatment: Yes Patient verbally consented to billing insurance company: Yes Patient informed of any privacy concerns related to visit: Yes Minutes spent on Phone/Video with Pt.: 60 Coding Level of Care Code Established Pt Tele Psytx >53 mins (72129) Patient Type Established Diagnoses Post traumatic stress disorder (PTSD) F43.10 Moderate depressive episode F32.A Time Spent (min) 60
--- OUTSIDE RECORDS SUMMARY | 2024-08-17 08:19 | XMS_ITS | Clinical Summary ---
Author Organization [facility] Address [address] [place] [address] Care Team Providers Care Flat Optical Element Maker Name Role Phone Pcp, No Primary Care [...] your patient to us, Krzysztof Alves MD [phone] (Electronically Signed - 11/23/2017 16:47) Copy: SHANI NUNEZ MD [address] [place] [address] SOBEIDA ROBISON [address] [place] [address] PATIENT , ?? Narrative 11/23/2017 [...] your patient to us, Krzysztof Alves MD [phone] (Electronically Signed - 11/23/2017 16:47) Copy: SHANI NUNEZ MD [address] [place], [place] [id number] SOBEIDA ROBISON [facility] 139 [facility] [address] [place], [place] [id number] PATIENT , us Dejah Moura MD IMG MAMMOGRAPHY ORDERABLES Final Result from Last 3 Months or Most Recently Relevant to Health Maintenance Insurance [employer] [place] OUT OF STATE - O Care Teams Flat Optical Element Maker Relationship Specialty Start Date End Date Pcp, No PCP - General General Medicine 09/07/16
== END 2024-08-17 09:00 | disposition home or self-care (01) ==
LOC: HO.HOP 08:12
PROVIDERS: Visit Provider Counselor Mental Health
DX: F43.10 Post-traumatic stress disorder, unspecified (principal); F32.A Depression, unspecified
CPT/HCPCS: 90837

== ENCOUNTER → 2024-08-17 08:12 | Outpatient (BNVA) | payer OTHER, SELFPAY | PROVIDERS: Visit Provider Counselor Mental Health ==

== ENCOUNTER 2024-10-19 09:12 | Outpatient (AMB) | payer OTHER, SELFPAY ==
--- NOTE | 2024-10-19 09:05 | A.OFFWM_ITS ---
Intake Intake Visit Reasons: VIDEO OP Therapy Behavioral Health Assessment Weight Management Therapy Therapy Notes Details Subjective: Patient reports successfully completing two classes with desired grades. She recently went on vacation, enjoyed time with her new grandson, and was able to be present and engaged during family gatherings, especially on Sundays when everyone was together. She reflects that by the end of the school year, she experienced a depressive episode, though it was less intense and of shorter duration than previous episodes. She was able to recognize the onset of symptoms earlier and responded by prioritizing hydration and nutrition, which she found helpful. Patient notes an increase in moments of happiness and a greater ability to identify and manage her mood changes. Objective: Patient presents for a follow-up visit via Telehealth. Last seen on 08/17/2024. During today?s session, the patient appeared well-groomed and engaged, with appropriate affect and coherent thought processes. No psychomotor agitation or retardation observed. Speech was normal in rate and tone. The patient demonstrated insight into her mood fluctuations and described using self- monitoring techniques to track her symptoms. Interventions provided during the session included cognitive behavioral therapy (CBT) techniques focused on identifying and challenging negative automatic thoughts related to self-worth and academic performance. Behavioral activation strategies were reviewed, encouraging the patient to schedule and engage in pleasurable and meaningful activities, particularly on weekends when she is with family. Psychoeducation was provided regarding the importance of maintaining regular routines, hydration, and nutrition as foundational self-care practices. The patient was guided through relaxation exercises, including diaphragmatic breathing, to manage acute stress. Problem-solving skills were reinforced to help her address potential triggers for depressive symptoms, and she was encouraged to continue using a mood journal to increase self-awareness and track progress. Assessment/Response: * Mental status: Patient is alert and oriented x3, mood is described as ?improving,? affect is congruent, thought process is logical and goal- directed. No evidence of psychosis or roberto. * Risk reported/identified: Patient denies suicidal or homicidal ideation, intent, or plan. No current safety concerns identified. Assessment & Plan Assessment & Plan (1) Post traumatic stress disorder (PTSD): Code(s): F43.10 - Post-traumatic stress disorder, unspecified (2) Moderate depressive episode: Code(s): F32.A - Depression, unspecified Plan Follow-up in 1 month. Next appointment scheduled for 11/16/2024 at 1:00 pm via video. Telehealth Telehealth Telehealth Platform: [employer] Location of provider rendering services: other (Home office. [place], [place]) Location of patient: address on file Patient Identification confirmed using: Name, : Yes Telehealth method: video Patient verbally consented to treatment: Yes Patient verbally consented to billing insurance company: Yes Patient informed of any privacy concerns related to visit: Yes Minutes spent on Phone/Video with Pt.: 60 Coding Level of Care Code Established Pt Tele Psytx >53 mins (64184) Patient Type Established Diagnoses Post traumatic stress disorder (PTSD) F43.10 Moderate depressive episode F32.A Time Spent (min) 60
--- OUTSIDE RECORDS SUMMARY | 2024-10-19 09:33 | XMS_ITS | Encounter Summary ---
Author Organization [facility] Address [address] [place] [address] Care Team Providers Care Piano Teacher Name Role Stamping Die Maker BenchAryan Gonzalez MD Primary Care Provider Onel Beal, Pcp Primary Care Provider Kathie fish Encounter Details Date Type Department Care Team Description 07/30/2017 Orders Only Medical Records [address] [place] [address] Julián Ashley DPM Social History Tobacco Use Types Packs/Day Years Used Date Smoking Tobacco: Never Smokeless Tobacco: Never Alcohol Use Standard Drinks/Week Comments Yes 0 (1 standard drink = 0.6 oz pur e alcohol) once in month Sex Assigned at Date Recorded Not on file documented as of this encounter Plan of Treatment Not on file documented as of this encounter Procedures Procedure Name Priority Date/Time Associated Diagnosis Comments OUTSIDE PATHOLOGY Routine 07/23/2017 documented in this encounter Results * OUTSIDE PATHOLOGY (07/23/2017) Julián Ashley DPM OUTSIDE LAB documented in this encounter Visit Diagnoses Not on filedocumented in this encounter Care Teams Piano Teacher Relationship Specialty Start Date End Date Aryan Gonzalez MD PCP - General Internal Medicine 02/05/14 02/15/20 [facility], Pcp PCP - General Internal Medicine 02/16/20 documented as of this encounter
--- OUTSIDE RECORDS SUMMARY | 2024-10-19 09:33 | XMS_ITS | Clinical Summary ---
Author Organization [facility] Address [address] [place] [address] Care Team Providers Care Spotlight Operator Name Role Phone Pcp, No Primary [...] 11/23/2017, 09/2016, 08/19/2016 COVID-19 Vaccine (1 - 2023- season) 2023 Influenza Vaccine 10/13/2024 Procedures Procedure [...] your patient to us, Krzysztof Alves MD [phone] (Electronically Signed - 11/23/2017 16:47) Copy: SHANI NUNEZ MD [address] [place] [address] SOBEIDA ROBISON [facility] 139 [facility] [address] [place] [address] PATIENT , Narrative 11/23/2017 4:47 PM EDT HISTORY: Patient [...] your patient to us, Krzysztof Alves MD [phone] (Electronically Signed - 11/23/2017 16:47) Copy: SHANI NUNEZ MD [address] [place] [address] SOBEIDA ROBISON [facility] [address] [facility] [address] [place], [place] [phone] PATIENT , us Dejah Moura MD IMG MAMMOGRAPHY ORDERABLES Final Result from Last 3 Months or Most Recently Relevant to Health Maintenance Insurance [employer] OUT OF STATE - O Care Teams Spotlight Operator Relationship Specialty Start Date End Date Pcp, No PCP - General General Medicine 09/07/16
--- OUTSIDE RECORDS SUMMARY | 2024-10-19 09:33 | XMS_ITS | Clinical Summary ---
Author Organization [facility] Address [address] [place] [phone] Phone Care Team Providers Care Railroad Conductor Name Role Phone Obey Carranza MD Primary Care Provider [phone] Social History Tobacco Use Types Packs/Day Years Used Date Smoking Tobacco: Never Assessed Comments Unknown Sex and Gender Information Value Date Recorded Sex Assigned at Not on file Legal Sex Female 10:41 AM EST Gender Identity Not on file Sexual Orientation Not on file Plan of Treatment Not on file Medical Devices Not on file Insurance [address] [address] HMO Care Teams Railroad Conductor Relationship Specialty Start Date End Date Obey Carranza MD [address] [place] [address] [email or web address] PCP - General Internal Medicine 01/18/24 Additional Source Comments The information contained in this document represents components of the legal health record. It is not the complete legal health record.[facility]
== END 2024-10-19 10:12 | disposition home or self-care (01) ==
LOC: HO.HOP 09:12
PROVIDERS: Visit Provider Counselor Mental Health
DX: F43.10 Post-traumatic stress disorder, unspecified (principal); F32.A Depression, unspecified
CPT/HCPCS: 90837

== ENCOUNTER 2024-11-16 13:08 | Outpatient (AMB) | payer OTHER, SELFPAY ==
--- NOTE | 2024-11-16 13:05 | A.OFFWM_ITS ---
Intake Intake Visit Reasons: VIDEO OP Therapy Behavioral Health Assessment Weight Management Therapy Therapy Notes Details Subjective: Patient reports having made the decision to wean off sertraline (Zoloft), which she started tapering one month ago and has now discontinued. She notes an improved sense of smell and taste since stopping the medication. Patient is actively working on living life with greater intention and is exploring ways to incorporate this mindset into her daily routine. Objective: Patient presents for a follow-up visit via Telehealth. During the session, functioning, progress, and current challenges were discussed. The patient appeared alert, engaged, and motivated to make positive changes. Affect was appropriate, and speech was clear and goal-directed. CBT-based interventions were utilized to support symptom management, including cognitive restructuring to address negative thought patterns and reinforce adaptive thinking. Mindfulness techniques were introduced and practiced, focusing on present-moment awareness and intentional living. The patient was encouraged to integrate daily mindfulness practices, such as mindful breathing and grounding exercises, to enhance self-awareness and emotional regulation. A behavioral activation plan was collaboratively developed, emphasizing the addition of intentional, value-driven activities to her daily schedule. Strategies for monitoring mood and tracking the impact of these activities were reviewed, and the patient was encouraged to reflect on her experiences between sessions Assessment/Response: * Mental status: Patient is alert and oriented x3, mood is described as ?hopeful,? affect is congruent, thought process is logical and organized. No evidence of psychosis or roberto. * Risk reported/identified: Patient denies suicidal or homicidal ideation, intent, or plan. No current safety concerns identified. Assessment & Plan Assessment & Plan (1) Post traumatic stress disorder (PTSD): Code(s): F43.10 - Post-traumatic stress disorder, unspecified (2) Moderate depressive episode: Code(s): F32.A - Depression, unspecified Plan Follow-up in 1 month. Next appointment scheduled for 12/14/2024 at 2:00 pm via video. Patient will continue to practice mindfulness, implement behavioral activation strategies, and monitor her mood and functioning. Progress will be reassessed and interventions adjusted as needed at the next visit. Telehealth Telehealth Telehealth Platform: [employer] Location of provider rendering services: other (Home office. [place], [place]) Location of patient: address on file Patient Identification confirmed using: Name, : Yes Telehealth method: video Patient verbally consented to treatment: Yes Patient verbally consented to billing insurance company: Yes Patient informed of any privacy concerns related to visit: Yes Minutes spent on Phone/Video with Pt.: 60 Coding Level of Care Code Established Pt Tele Psytx >53 mins (03355) Patient Type Established Diagnoses Post traumatic stress disorder (PTSD) F43.10 Moderate depressive episode F32.A Time Spent (min) 60
--- OUTSIDE RECORDS SUMMARY | 2024-11-16 14:21 | XMS_ITS | Clinical Summary ---
Author Organization [facility] Address [address] [place] [phone] Phone Care Team Providers Care Jig And Fixture Maker Name Role Phone Obey Carranza MD Primary Care Provider [phone] Social History Tobacco Use Types Packs/Day Years Used Date Smoking Tobacco: Never Assessed Comments Unknown Sex and Gender Information Value Date Recorded Sex Assigned at Not on file Legal Sex Female 10:41 AM EST Gender Identity Not on file Sexual Orientation Not on file Plan of Treatment Not on file Medical Devices Not on file [place] [address] [place] [address] HMO Care Teams Jig And Fixture Maker Relationship Specialty Start Date End Date Obey Carranza MD [address] [place] [id number] [email or web address] PCP - General Internal Medicine 01/18/24 Additional Source Comments The information contained in this document represents components of the legal health record. It is not the complete legal health record.[facility]
== END 2024-11-16 14:45 | disposition home or self-care (01) ==
LOC: HO.HOP 13:08
PROVIDERS: Visit Provider Counselor Mental Health
DX: F43.10 Post-traumatic stress disorder, unspecified (principal); F32.A Depression, unspecified
CPT/HCPCS: 90837

== ENCOUNTER 2024-12-14 14:03 | Outpatient (AMB) | payer OTHER, SELFPAY ==
--- NOTE | 2024-12-14 14:00 | A.OFFWM_ITS ---
Intake Intake Visit Reasons: VIDEO OP Therapy Behavioral Health Assessment Weight Management Therapy Therapy Notes Details Subjective: The patient reports ongoing frustration and mental fatigue related to the current socio-political environment, which has contributed to feeling drained and struggling with job-related duties. She notes difficulty managing external factors beyond her control that continue to impact her well-being. Despite these challenges, she describes her morning routine as more intentional and productive, and she is transitioning more smoothly between home and work roles. The patient is actively working on a coping plan to address her emotions more proactively and reports noticeable progress in this area. Objective: The patient attended a behavioral health follow-up visit. The session utilized reflective listening to process current stressors and reinforce progress. The coping plan was reviewed, with a focus on maintaining calm amidst chaos and engaging in intentional, adaptive behaviors. The patient was engaged and demonstrated insight into her stress management strategies. Assessment/Response: * Mental status: Alert and oriented; mood described as frustrated but motivated; affect appropriate and congruent; thought process logical and goal-directed; no evidence of psychosis or cognitive impairment. * Risk reported/identified: The patient denies any suicidal ideation, self-harm, or thoughts of harm to others. No acute safety concerns identified. Assessment & Plan Assessment & Plan (1) Post traumatic stress disorder (PTSD): Code(s): F43.10 - Post-traumatic stress disorder, unspecified (2) Moderate depressive episode: Code(s): F32.A - Depression, unspecified Plan Continue monthly behavioral health sessions to support ongoing coping and stress management. Reinforce use of intentional routines and adaptive coping strategies. * Next appointment scheduled for 01/11/2025 at 2:00 PM via video. Telehealth Telehealth Telehealth Platform: [employer] Location of provider rendering services: other (Home office. [place], [place]) Location of patient: address on file Patient Identification confirmed using: Name, : Yes Telehealth method: video Patient verbally consented to treatment: Yes Patient verbally consented to billing insurance company: Yes Patient informed of any privacy concerns related to visit: Yes Minutes spent on Phone/Video with Pt.: 60 [place] [address] Tele Psytx >53 mins Patient Type Established Diagnoses Post traumatic stress disorder (PTSD) F43.10 Moderate depressive episode F32.A Time Spent (min) 60
--- OUTSIDE RECORDS SUMMARY | 2024-12-14 15:42 | XMS_ITS | Clinical Summary ---
Author Organization [facility] Address [address] [place] [phone] Phone Care Team Providers Care Supervisor [employer] Name Role Phone Obey Carranza MD Primary Care Provider [phone] Social History Tobacco Use Types Packs/Day Years Used Date Smoking Tobacco: Never Assessed Comments Unknown Sex and Gender Information Value Date Recorded Sex Assigned at Not on file Legal Sex Female 10:41 AM EST Gender Identity Not on file Sexual Orientation Not on file Plan of Treatment Not on file Medical Devices Not on file [place] [address] [place] [address] HMO Care Teams Supervisor [employer] Relationship Specialty Start Date End Date Obey Carranza MD [address] [place] [phone] [email or web address] PCP - General Internal Medicine 01/18/24 Additional Source Comments The information contained in this document represents components of the legal health record. It is not the complete legal health record.[facility]
--- OUTSIDE RECORDS SUMMARY | 2024-12-14 15:42 | XMS_ITS | Clinical Summary ---
Author Organization [facility] Address [address] [place] [address] Care Team Providers Care Dynamicist Name Role Phone Pcp, No Primary Care [...] 2) 2016 Mammogram 11/24/2019 11/23/2017, 09/2016, 08/19/2016 Influenza Vaccine 10/13/2024 COVID-19 Vaccine ( season) 2024 Procedures Procedure Name Priority Date/Time Associated Diagnosis [...] your patient to us, Krzysztof Alves MD [id number] (Electronically Signed - 11/23/2017 16:47) Copy: SHANI NUNEZ MD [address] [place] [address] [address] [facility] [address] [facility] [address] [place] [address] PATIENT , Narrative 11/23/2017 4:47 [...] your patient to us, Krzysztof Alves MD [id number] (Electronically Signed - 11/23/2017 16:47) Copy: SHANI NUNEZ MD [address] [place] [address] [address] [facility] [address] [facility] [address] [place] [id number] PATIENT , us Dejah Moura MD IMG MAMMOGRAPHY ORDERABLES Final Result from Last 3 Months or Most Recently Relevant to Health Maintenance Insurance [employer] OUT OF STATE - O Care Teams Dynamicist Relationship Specialty Start Date End Date Pcp, No PCP - General General Medicine 09/07/16
== END 2024-12-14 15:13 | disposition home or self-care (01) ==
LOC: HO.HOP 14:03
PROVIDERS: Visit Provider Counselor Mental Health
DX: F43.10 Post-traumatic stress disorder, unspecified (principal); F32.A Depression, unspecified
CPT/HCPCS: 90837

== ENCOUNTER 2025-01-11 13:18 | Outpatient (AMB) | payer OTHER, SELFPAY ==
--- NOTE | 2025-01-11 13:05 | MHC.WMTHER ---
Intake Intake Visit Reasons: VIDEO OP Therapy Behavioral Health Assessment Weight Management Therapy Therapy Notes Details Subjective: The patient reports experiencing significant stress but was able to take a weekend and several days off from work to be present with her family, which she found restorative. 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 She is actively practicing healthy sleep hygiene by keeping her computer out of the bedroom and engaging in reading or meditation at bedtime. She reflects on how little it takes to feel overwhelmed but reports that her sleep quality has been very good. Objective: The patient attended a behavioral health follow-up visit via telehealth. The session focused on talk therapy and reflective listening to process current life challenges, progress, and ongoing areas of focus. Psychoeducation was provided regarding compassion fatigue. Dialectical Behavior Therapy (DBT) techniques were introduced and explored for emotional regulation and managing ongoing stressors. The patient was engaged and receptive throughout the session. Assessment/Response: Mental status: Alert and oriented; mood described as stressed but stable; affect appropriate and congruent; thought process logical and coherent; no evidence of psychosis or cognitive impairment. Risk reported/identified: The patient denies any suicidal ideation, self-harm, or thoughts of harm to others. No acute safety concerns identified. Assessment & Plan Assessment & Plan (1) Post traumatic stress disorder (PTSD): Code(s): F43.10 - Post-traumatic stress disorder, unspecified (2) Moderate depressive episode: Code(s): F32.A - Depression, unspecified Plan Continue to reinforce stress management strategies and healthy sleep hygiene. Monitor for signs of compassion fatigue and provide additional support as needed. Follow-up appointment scheduled in one month; next session set for 02/15/2025 at 1:00 PM via video. Telehealth Telehealth Telehealth Platform: [employer] [facility] Location of provider rendering services: practice address Location of patient: address on file Patient Identification confirmed using: Name, : Yes Telehealth method: video Patient verbally consented to treatment: Yes Patient verbally consented to billing insurance company: Yes Patient informed of any privacy concerns related to visit: Yes Minutes spent on Phone/Video with Pt.: 55 Coding Level of Care Code Established Pt Tele Psytx >53 mins (39076) Patient Type Established Diagnoses Post traumatic stress disorder (PTSD) F43.10 Moderate depressive episode F32.A Time Spent (min) 55
--- OUTSIDE RECORDS SUMMARY | 2025-01-11 16:16 | XMS_ITS | Clinical Summary ---
Author Organization [facility] Address [address] [place] [address] Phone Care Team Providers Care Architect Naval Name Role Phone Obey Carranza MD Primary Care Provider [phone] Social History Tobacco Use Types Packs/Day Years Used Date Smoking Tobacco: Never Assessed Comments Unknown Sex and Gender Information Value Date Recorded Sex Assigned at Not on file Legal Sex Female 10:41 AM EST Gender Identity Not on file Sexual Orientation Not on file Plan of Treatment Not on file Medical Devices Not on file Insurance [place] [address] [address] HMO Care Teams Architect Naval Relationship Specialty Start Date End Date Obey Carranza MD [address] [place] [phone] [email or web address] PCP - General Internal Medicine 01/18/24 Additional Source Comments The information contained in this document represents components of the legal health record. It is not the complete legal health record.[facility]
== END 2025-01-11 14:12 | disposition home or self-care (01) ==
LOC: HO.HOP 13:18
PROVIDERS: Visit Provider Counselor Mental Health
DX: F43.10 Post-traumatic stress disorder, unspecified (principal); F32.A Depression, unspecified
CPT/HCPCS: 90837

== ENCOUNTER 2025-02-15 13:19 | Outpatient (AMB) | payer OTHER, SELFPAY ==
--- NOTE | 2025-02-15 13:05 | A.OFFWM_ITS ---
Intake Intake Visit Reasons: VIDEO OP Therapy Behavioral Health Assessment Weight Management Therapy Therapy Notes Details Subjective: The patient reports that this season is typically stressful and emotionally heavy for her. She has intentionally planned for a quiet holiday period, with family celebrations postponed until March. To maintain social connections, she is scheduling select gatherings with loved ones. She has also been spending more time quilting as a way to reduce time on social media and minimize exposure to external stressors, describing this as a helpful strategy for creating a sense of calm. Objective: The patient attended a follow-up session via telehealth. She reflected on her current stage of life, expressing appreciation for not having primary responsibility for holiday planning now that her children have their own families. During the session, CBT-based interventions were utilized, including cognitive restructuring to challenge negative automatic thoughts about the holiday season, behavioral activation to encourage engagement in meaningful activities (such as quilting), and problem-solving strategies to manage anticipated stressors. Mindfulness techniques were also reviewed to help her remain present and reduce rumination. Psychoeducation was provided regarding the importance of maintaining social connections and self-care routines during potentially isolating times. The patient demonstrated insight into her stress triggers and actively participated in developing coping strategies. Assessment/Response: * Mental status: Euthymic, with some reported stress. * Risk reported/identified: none. The patient is managing seasonal stressors with adaptive coping strategies and demonstrates good insight into her emotional needs. No acute risk identified. She is receptive to CBT-based interventions and is actively implementing coping skills. Assessment & Plan Assessment & Plan (1) Post traumatic stress disorder (PTSD): Code(s): F43.10 - Post-traumatic stress disorder, unspecified (2) Moderate depressive episode: Code(s): F32.A - Depression, unspecified Plan Continue to reinforce CBT-based coping strategies and mindfulness practices Encourage ongoing engagement in meaningful activities and social connection Safety and coping plan reviewed; patient instructed to reach out if additional support is needed before the next appointment * Next appointment scheduled for 03/29/2024 at 1:00 PM via video, approximately six weeks out due to provider?s upcoming vacation. Telehealth Telehealth Telehealth Platform: [facility] Location of provider rendering services: practice address Location of patient: address on file Patient Identification confirmed using: Name, : Yes Telehealth method: video Patient verbally consented to treatment: Yes Patient verbally consented to billing insurance company: Yes Patient informed of any privacy concerns related to visit: Yes Minutes spent on Phone/Video with Pt.: 60 [place] [address] Tele Psytx >53 mins Patient Type Established Diagnoses Post traumatic stress disorder (PTSD) F43.10 Moderate depressive episode F32.A Time Spent (min) 60
== END 2025-02-15 14:15 | disposition home or self-care (01) ==
LOC: HO.HOP 13:19
PROVIDERS: Visit Provider Counselor Mental Health
DX: F43.10 Post-traumatic stress disorder, unspecified (principal); F32.A Depression, unspecified
CPT/HCPCS: 90837